=== PATIENT | female | born 1980 | race Caucasian/White ===

== ENCOUNTER 2020-04-17 11:15 | Emergency (ER) | payer OTHER, MEDICAID ==
[~2020-04-17] VITALS: Ht 149.9 cm; Wt 72.6 kg
[2020-04-17] MEDS ORDERED: ABILIFY10 MG PO (11:39)
[2020-04-17] MEDS ORDERED: SYNTHROID137 MC1 PO (11:39)
[2020-04-17 12:11] LABS: ABSOLUTE BASOPHILS 0.1 thou/uL (0.0-0.2); ABSOLUTE EOSINOPHILS 0.7 thou/uL (0.0-0.7); ABSOLUTE LYMPHOCYTES 1.9 thou/uL (0.8-5.3); ABSOLUTE MONOCYTES 0.5 thou/uL (0.0-1.2); ABSOLUTE NEUTROPHILS 9.4 thou/uL (1.6-8.1); BASOPHILS 0.6 %; EOSINOPHILS 5.7 %; HEMATOCRIT 46.1 % (37.0-47.0); HEMOGLOBIN 15.1 gm/dL (12.0-15.0); LYMPHOCYTES 14.7 %; MCH 30.6 pg (26.0-34.0); MCHC 32.8 g/dL (28.0-37.0); MCV 93.3 fL (80.0-100.0); MONOCYTES 4.2 %; MPV 8.8 fl. (7.2-11.1); NUCLEATED RBCS 0 /100WBC; PLATELET COUNT* 322 thou/uL (150-400); POLYS 74.8 %; RBC 4.93 mil/uL (4.20-5.00); RDW-CV 14.4 % (10.5-14.5); WBC 12.6 thou/uL (4.0-11.0)
[2020-04-17 12:23] LABS: APTT 25.7 Seconds (25.0-31.3); CALCIUM 9.5 mg/dL (8.5-10.1); CREATININE 0.8 mg/dL (0.6-1.3); POTASSIUM 4.3 mmol/L (3.5-5.1); PROTIME 10.4 Seconds (9.20-11.50)
[2020-04-17 12:34] LABS: ALBUMIN 3.9 g/dL (3.4-5.0); TOTAL BILIRUBIN 0.2 mg/dL (<0.1-1.0); TOTAL PROTEIN 7.8 g/dL (6.4-8.2)
[2020-04-17 13:11] VITALS: BP 127/85
--- NOTE | 2020-04-17 17:22 | EKG ---
[place] [address] ELECTROCARDIOGRAM REPORT Name: HADLEY WATSON Room: [facility]#: [id number] Admission: 04/17/20 Attend Phys: Discharge: 04/17/20 Date of : 82 Date of Service: 04/17/20 1132 Report #: [id number] THIS REPORT FOR: //name// [facility] ED Test Date: 2020-04-17 Test Time: 11:32:03 Pat Name: HADLEY WATSON Department: Room: Gender: Counseling Director: TDS : 1980 Requested By: Bridger Marcus Order Number: [id number] MD: Lamine Simms Measurements Intervals [place] Rate: 106 P: 100 UT: 150 QRS: -9 QRSD: 87 T: 67 QT: 329 QTc: 437 Interpretive Statements Sinus tachycardia Possible left atrial enlargement Consider anterior infarct No previous ECG available for comparison Electronically Signed On 04-17-2020 17:21:51 [employer] by Lamine Simms [email or web address] <ELECTRONICALLY SIGNED> By: Lamine Simms MD, [facility] 04/17/20 1721 1132 113 Lamine Simms MD, FAC /EPI
== END 2020-04-17 13:12 | disposition home or self-care (01) ==
LOC: M.ERS 11:15
PROVIDERS: Family Medicine
DX: R53.1 Weakness (principal); T50.995A Adverse effect of other drugs, medicaments and biological substances, initial encounter; E03.9 Hypothyroidism, unspecified; Z88.0 Allergy status to penicillin; Y92.89 Other specified places as the place of occurrence of the external cause